=== PATIENT | male | born 1960 | race Caucasian/White ===

== ENCOUNTER 2017-09-24 15:39 | Emergency (ER) | payer OTHER ==
[~2017-09-24] VITALS: Ht 180.3 cm; Wt 124.7 kg
[2017-09-24] MEDS ORDERED: PRINIVIL20 MG PO (16:10)
[2017-09-24] MEDS ORDERED: CELEBREX 200 M200 M1 PO (16:10)
[2017-09-24 16:30] LABS: ABSOLUTE BASOPHILS 0.1 thou/uL (0.0-0.2); ABSOLUTE EOSINOPHILS 0.1 thou/uL (0.0-0.7); ABSOLUTE LYMPHOCYTES 2.7 thou/uL (0.8-5.3); ABSOLUTE MONOCYTES 0.5 thou/uL (0.0-1.2); ABSOLUTE NEUTROPHILS 5.3 thou/uL (1.6-8.1); BASOPHILS 0.6 %; EOSINOPHILS 1.6 %; HEMATOCRIT 45.3 % (42.0-52.0); HEMOGLOBIN 15.5 gm/dL (14.0-18.0); LYMPHOCYTES 31.4 %; MCH 30.9 pg (26.0-34.0); MCHC 34.1 g/dL (28.0-37.0); MCV 90.5 fL (80.0-100.0); MONOCYTES 5.8 %; MPV 7.7 fl. (7.2-11.1); NUCLEATED RBCS 0 /100WBC; PLATELET COUNT* 271 thou/uL (150-400); POLYS 60.6 %; RDW-CV 12.3 % (10.5-14.5); WBC 8.7 thou/uL (4.0-11.0)
[2017-09-24 17:01] LABS: CALCIUM 8.3 mg/dL (8.5-10.1); CREATININE 0.9 mg/dL (0.6-1.3); POTASSIUM 3.6 mmol/L (3.5-5.1)
[2017-09-24 17:04] LABS: URINE BILIRUBIN NEGATIVE (Negative); URINE BLOOD NEGATIVE (Negative); URINE CLARITY CLEAR; URINE COLOR YELLOW; URINE GLUCOSE-RANDOM TRACE (Negative); URINE KETONES NEGATIVE (Negative); URINE LEUKOCYTES-REFLEX NEGATIVE (Negative); URINE NITRITE-REFLEX NEGATIVE (Negative); URINE PROTEIN NEGATIVE (Negative); URINE UROBILINOGEN 0.2 E.U./dl (0.2-1.0)
[2017-09-24 17:06] LABS: ALBUMIN 3.4 g/dL (3.4-5.0); TOTAL BILIRUBIN 0.2 mg/dL (<0.1-1.0); TOTAL PROTEIN 7.6 g/dL (6.4-8.2)
[2017-09-24 17:11] LABS: AMP/METHAMP Negative (Negative); BARBITURATES Negative (Negative); BENZODIAZEPINES Negative (Negative); COCAINE Negative (Negative); METHADONE Negative (Negative); OPIATES Negative (Negative); PCP Negative (Negative); THC Negative (Negative)
[2017-09-24 17:39] VITALS: BP 138/72
--- NOTE | 2017-09-24 17:46 | EKG ---
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
== END 2017-09-24 17:40 | disposition home or self-care (01) ==
LOC: M.ERS 15:39
PROVIDERS: Nurse Practitioner Family
DX: G43.B0 Ophthalmoplegic migraine, not intractable (principal); M19.90 Unspecified osteoarthritis, unspecified site; Z85.46 Personal history of malignant neoplasm of prostate; Z88.0 Allergy status to penicillin

== ENCOUNTER 2018-01-12 15:21 | Emergency (ER) | payer OTHER ==
[~2018-01-12] VITALS: Ht 180.3 cm; Wt 137.0 kg
[~2018-01-12 15:21] MED LIST: CELEBREX 200 M200 M1 PO; PRINIVIL20 MG PO
[2018-01-12 15:44] LABS: ABSOLUTE BASOPHILS 0.1 thou/uL (0.0-0.2); ABSOLUTE EOSINOPHILS 0.2 thou/uL (0.0-0.7); ABSOLUTE MONOCYTES 0.5 thou/uL (0.0-1.2); ABSOLUTE NEUTROPHILS 3.4 thou/uL (1.6-8.1); BASOPHILS 0.9 %; EOSINOPHILS 3.3 %; HEMATOCRIT 47.9 % (42.0-52.0); LYMPHOCYTES 32.2 %; MCH 29.9 pg (26.0-34.0); MCHC 33.4 g/dL (28.0-37.0); MCV 89.5 fL (80.0-100.0); MONOCYTES 7.8 %; MPV 7.9 fl. (7.2-11.1); NUCLEATED RBCS 0 /100WBC; PLATELET COUNT* 231 thou/uL (150-400); POLYS 55.8 %; RBC 5.35 mil/uL (4.50-6.00); RDW-CV 12.5 % (10.5-14.5); WBC 6.1 thou/uL (4.0-11.0)
[2018-01-12 15:53] LABS: ANION GAP 10 mmol/L (7-16); BUN 12 mg/dL (7-18); CALCIUM 8.6 mg/dL (8.5-10.1); CHLORIDE 101 mmol/L (98-107); CO2 24 mmol/L (21-32); CREATININE 0.9 mg/dL (0.6-1.3); GLUCOSE 171 mg/dL (70-99); POTASSIUM 3.7 mmol/L (3.5-5.1); SODIUM 135 mmol/L (136-145)
[2018-01-12 15:56] LABS: PROTIME 10.7 Seconds (9.20-11.50)
[2018-01-12 16:11] LABS: ALBUMIN 3.5 g/dL (3.4-5.0); ALKALINE PHOSPHATASE 97 U/L (46-116); CK-MB MASS 0.9 ng/mL (<0.5-3.6); LIPASE 174 U/L (73-393); MAGNESIUM 2.1 mg/dL (1.8-2.4); NT-PRO BRAIN NAT PEPTIDE 24 pg/mL (<300); SGOT 23 U/L (15-37); SGPT 43 U/L (30-65); TOTAL BILIRUBIN 0.2 mg/dL (<0.1-1.0); TOTAL PROTEIN 7.8 g/dL (6.4-8.2); TROPONIN-I LEVEL <0.06 ng/mL (<0.06)
[2018-01-12 16:35] VITALS: BP 140/79
--- NOTE | 2018-01-12 16:51 | EKG ---
[place] [address] ELECTROCARDIOGRAM REPORT Name: JOSEE VALENTIN Room: [facility]#: [id number] Admission: 01/12/18 Attend Phys: Discharge: 01/12/18 Date of : 60 Report #: [id number] THIS REPORT FOR: //name// [facility] ED Test Date: 2018-01-12 Test Time: 15:26:07 Pat Name: JOSEE VALENTIN Department: Room: Gender: French Binder: TIFFANIE : 1960 Requested By: Kamran Mason Order Number: [id number] MD: Dominic Waldron Measurements Intervals Enigma Rate: 100 P: 41 VA: 157 QRS: 46 QRSD: 93 T: 53 QT: 343 QTc: 443 Interpretive Statements Sinus tachycardia Compared to ECG 09/24/2017 16:12:24 Sinus rhythm no longer present Electronically Signed On 01-12-2018 16:51:14 [employer]ICAL RECORDS COORDINATOR by Dominic Waldron [email or web address] <ELECTRONICALLY SIGNED> By: Dominic Waldron MD, [facility] 01/12/18 1651 1526 1526 Dominic Waldron MD, [facility] /EPI
== END 2018-01-12 16:36 | disposition home or self-care (01) ==
LOC: M.ERS 15:21
PROVIDERS: Family Medicine
DX: R07.89 Other chest pain (principal); R00.2 Palpitations; I10 Essential (primary) hypertension; M19.90 Unspecified osteoarthritis, unspecified site; Z85.46 Personal history of malignant neoplasm of prostate; Z88.0 Allergy status to penicillin

== ENCOUNTER 2020-03-19 13:09 | Emergency (ER) | payer OTHER ==
[~2020-03-19] VITALS: Ht 180.3 cm; Wt 117.9 kg
[2020-03-19] MEDS ORDERED: CHILDREN'S ASPI81 M1 PO (13:19)
[2020-03-19] MEDS ORDERED: DORYX MPC120 MG PO (14:32)
[2020-03-19 15:40] VITALS: BP 132/77
== END 2020-03-19 15:40 | disposition home or self-care (01) ==
LOC: M.ERS 13:09
DX: S61.211A Laceration without foreign body of left index finger without damage to nail, initial encounter (principal); M19.90 Unspecified osteoarthritis, unspecified site; I10 Essential (primary) hypertension; Z88.0 Allergy status to penicillin; Z85.46 Personal history of malignant neoplasm of prostate; W26.8XXA Contact with other sharp object(s), not elsewhere classified, initial encounter; Y93.89 Activity, other specified; Y92.89 Other specified places as the place of occurrence of the external cause; Y99.8 Other external cause status